=== PATIENT | female | born 1990 | race African-American/Black ===

== ENCOUNTER 2016-04-12 23:55 | Emergency (ER) | payer BC ==
[~2016-04-12] VITALS: Ht 170.2 cm; Wt 88.0 kg
[~2016-04-12 23:55] MED LIST: Z.0.NO CURRENT MEDS
[2016-04-13 00:14] VITALS: BP 117/84; PULSE 65; RESP 16; TEMP 98.2; O2SAT 100
--- NOTE | 2016-04-13 01:13 | PD ---
HPI Chief Complaint: Eye Problems/Injury Time Seen by Provider: 01:08 Travel History International Travel<30 days: No Contact w/Intl Traveler<30days: No Traveled to known affect area: No History of Present Illness HPI The patient is a 25-year-old female that complained of redness in her left eye for 4 days. She denies any cough or straining or trauma. There is no redness in the right eye and it is not pruritic or painful. She denies any fever. She is not on any anticoagulants. She denies any bruising, heavy vaginal bleeding, gastrointestinal bleeding or any coagulation problems in the past. [facility] Past Medical History Medical History: Denies Significant Hx Immunizations Current: No Tetanus Vaccination: Unknown Influenza Vaccination: No ?: Not LMP: 2 DAYS AGO : 0 Past Surgical History Surgical History: No Previous Surgery Social History Alcohol Use: Yes (SOCIAL) Tobacco Use: Yes (1 BLACK AND MILD DAILY) Substance Use: No Allergies-Medications (Allergen,Severity, Reaction): Coded Allergies: No Known Allergies (Verified , 04/13/16) Reported Meds & Prescriptions Reported Meds & Active Scripts Active No Active Prescriptions or Reported Medications Review of Systems Except as stated in HPI: all other systems reviewed are Neg Physical Exam Narrative GENERAL: Well-nourished, well-developed patient. SKIN: Warm and dry. HEAD: Normocephalic. EYES: No scleral icterus. The left eye shows a subcutaneous conjunctival hematoma. The visual acuity is excellent, 20/13 in the right eye and 20/15 in the left eye. Extraocular movements are normal. NECK: Supple, trachea midline. No JVD or lymphadenopathy. CARDIOVASCULAR: Regular rate and rhythm without murmurs, gallops, or rubs. RESPIRATORY: Breath sounds equal bilaterally. No accessory muscle use. GASTROINTESTINAL: Abdomen soft, non-tender, nondistended. MUSCULOSKELETAL: No cyanosis, or edema. BACK: Nontender without obvious deformity. No CVA tenderness. Data Data Last Documented VS Vital Signs Date Time Temp Pulse Resp B/P Pulse Ox O2 Delivery O2 Flow Rate FiO2 04/13/16 00:42 18 04/13/16 00:14 98.2 65 117/84 100 Room Air MDM Medical Decision Making Medical Screen Exam Complete: Yes Emergency Medical Condition: Yes Medical Record Reviewed: Yes Differential Diagnosis Some conjunctival hematoma, conjunctivitis, coagulopathyunlikely, viral syndrome with coughingunlikely Narrative Course The patient has a subconjunctival hematoma. She should avoid coughing, straining or any trauma to that left eye. Diagnosis Primary Impression: Subconjunctival hematoma Additional Instructions: As we discussed, avoid any trauma, straining, eye rubbing, sneezing. This eye will take care of itself if left alone. Med/Other Pt SpecificInfo: No Change to Meds Scripts No Active Prescriptions or Reported Meds Disposition: 01 DISCHARGE HOME Condition: Stable Nima Price MD Apr 13, 2016 01:13
[2016-04-13 01:35] VITALS: BP 118/65
== END 2016-04-13 01:36 | disposition home or self-care (01) ==
LOC: PHED 23:55
DX: S05.12XA Contusion of eyeball and orbital tissues, left eye, initial encounter (principal); X58.XXXA Exposure to other specified factors, initial encounter; Z72.0 Tobacco use
CPT/HCPCS: 99282